=== PATIENT | female | born 1955 | race Two or more races ===

== ENCOUNTER 2024-04-08 13:28 | Outpatient (CLI) | payer MEDICARE, BC | END 2024-04-08 23:59 | disposition home or self-care (01) | LOC: MRI 13:28 | PROVIDERS: ATTEND Physician Assistant Surgical | DX: M17.12 Unilateral primary osteoarthritis, left knee (principal); M71.22 Synovial cyst of popliteal space [Baker], left knee; M25.762 Osteophyte, left knee; M79.605 Pain in left leg; M25.562 Pain in left knee; M25.572 Pain in left ankle and joints of left foot | CPT/HCPCS: 73721 ==